=== PATIENT | male | born 1990 | race American Indian/Alaskan Native ===

== ENCOUNTER 2020-02-23 14:46 | Emergency (ER) | payer OTHER ==
[2020-02-23 14:51] VITALS: BP 113/80
--- NOTE | 2020-02-23 15:23 | Emergency Department Report ---
Eye Injury/Foreign Body - HPI Duration: 5 Days Eye Location: Left Severity: Mild Tetanus Status: Up to Date Eye Symptoms: Eye Pain: Yes, Blurred Vision: No, Eye Redness: No, Grinding/Hammering Metal: No, Used Eye Protection: No, Contact Lens Use: No, Recalls Injury: No, Photophobia: No Other History: This is a 29-year-old healthy male who presents the ED complaining of left lower eyelid swelling that is been going on for the past 4 days. Patient states he has been putting warm compress to the eye with no relief. Patient denies any eye injury or foreign body to the eye. Patient states that he has a new dog which may have something to do with his symptoms but otherwise no other injuries. ED Review of Systems ROS: Stated complaint: (L) EYE SWOLLEN Other details as noted in HPI Comment: All other systems reviewed and negative ED Past Medical Hx - Past Medical History Previous Medical History?: No - Surgical History Past Surgical History?: No - Social History Smoking Status: Never Smoker Substance Use Type: Marijuana - Medications Home Medications: Home Medications Medication Instructions Recorded Confirmed Last Taken Type Erythromycin [Erythromycin Ophth 1 applic OP TID #1 tube 02/23/20 Unknown Rx Oint] Eye Injury Exam - Exam General: Vital signs noted. No distress. Alert and acting appropriately. No vision loss bilaterally. GENERAL: Alert and oriented x3, no apparent distress, Normal Gait, atraumatic. EYES: Extra ocular muscles are intact. Pupils are equal, round, and reactive to light and accommodation. No conjunctival erythema bilaterally. Mild swelling to the lower eyelid consistent with a hordeolum. Bilateral orbits nontender to palpation SKIN: Warm and dry, No lesions, No ulceration or induration present. ED Course Vital Signs 02/23/20 14:48 Temperature 98.3 F Pulse Rate 63 Respiratory 20 Rate Blood Pressure 113/80 O2 Sat by Pulse 97 Oximetry ED Medical Decision Making - Medical Decision Making 29-year-old male presents with stye of the left lower lid. Vital signs are normal. Discussed antibiotic therapy with patient. Discussed follow-up with primary care physician in 3 to 5 days. Discussed continued warm compress daily No evidence of visual loss bilaterally. Vision is intact bilaterally Critical care attestation.: If time is entered above; I have spent that time in minutes in the direct care of this critically ill patient, excluding procedure time. ED Disposition Clinical Impression: Hordeolum external Disposition: DC-01 TO HOME OR SELFCARE Is pt being admited?: No Does the pt Need Aspirin: No Condition: Stable Instructions: Theo (ED) Additional Instructions: Make sure to follow up with the primary care physician as discussed. Take all your medications as you've been prescribed. If you have any worsening symptoms or develop new symptoms please return to ED immediately. Prescriptions: Erythromycin [Erythromycin Ophth Oint] 1 applic OP TID #1 tube Referrals: [facility] [Outside] - 3-5 Days [facility] [Outside] - 3-5 Days Forms: Work/School Release Form(ED) Time of Disposition: 15:21
== END 2020-02-23 15:25 | disposition home or self-care (01) ==
LOC: ED 14:46
DX: H00.015 Hordeolum externum left lower eyelid (principal); F12.10 Cannabis abuse, uncomplicated; Z79.899 Other long term (current) drug therapy
CPT/HCPCS: 99282

== ENCOUNTER 2020-05-02 12:36 | Emergency (ER) | payer OTHER ==
[2020-05-02 13:11] VITALS: BP 122/63
--- NOTE | 2020-05-02 16:48 | Emergency Department Report ---
ED Abdominal Pain HPI - General Chief Complaint: Abdominal Pain Stated Complaint: STOMACH PAIN PUI?: No Time Seen by Provider: 05/02/20 16:44 Source: patient Mode of arrival: Ambulatory Limitations: No Limitations - History of Present Illness Initial Comments: Chief complaint: "I thought it was the checkers that I ate." HPI: This is a healthy 29-year-old male without significant past medical history who presents with central intermittent abdominal pain for the past 4 days since eating checkers fast food. He ate 2 hamburgers. Shortly after eating the fast food he developed central dull pain with diarrhea. The discomfort was immediately relieved with his friends Zofran medication. He denies fever. He denies chest pain. He denies cough. He denies sick contacts. He has recently tolerated food including chicken and vegetables. He just wanted to make sure that he did not have a dangerous medical condition. He is currently symptom- free. MD Complaint: abdominal pain -: Gradual, days(s) (4) Location: epigastric Radiation: none Severity: mild Severity scale (0 -10): 0 Quality: cramping, aching, dull Consistency: now resolved Improves With: medication (Friends Zofran medication) Worsens With: nothing Context: possible food poisoning Associated Symptoms: diarrhea - Related Data Previous Rx's Medication Instructions Recorded Last Taken Type Erythromycin [Erythromycin Ophth 1 applic OP TID #1 tube 02/23/20 Unknown Rx Oint] Allergies Allergy/AdvReac Type Severity Reaction Status Date / Time No Known Allergies Allergy Unverified 02/23/20 14:48 ED Review of Systems ROS: Stated complaint: STOMACH PAIN Other details as noted in HPI Comment: All other systems reviewed and negative Constitutional: denies: fever, malaise Respiratory: denies: cough, shortness of breath Gastrointestinal: abdominal pain, diarrhea. denies: nausea, vomiting Neurological: denies: headache ED Past Medical Hx - Past Medical History Previous Medical History?: No - Surgical History Past Surgical History?: No - Social History Smoking Status: Current Every Day Smoker Substance Use Type: Marijuana - Medications Home Medications: Home Medications Medication Instructions Recorded Confirmed Last Taken Type Erythromycin [Erythromycin Ophth 1 applic OP TID #1 tube 02/23/20 Unknown Rx Oint] ED Physical Exam - General Limitations: No Limitations General appearance: alert, in no apparent distress, other (Pleasant, smiling, comfortable, transfers and ambulates with ease) - Head Head exam: Present: atraumatic, normocephalic - Eye Eye exam: Present: normal appearance - ENT ENT exam: Present: mucous membranes moist - Neck Neck exam: Present: normal inspection, full ROM - Respiratory Respiratory exam: Present: normal lung sounds bilaterally. Absent: respiratory distress, wheezes, rales, rhonchi - Cardiovascular Cardiovascular Exam: Present: regular rate, normal rhythm, normal heart sounds. Absent: systolic murmur, diastolic murmur, rubs, gallop - GI/Abdominal GI/Abdominal exam: Present: soft, normal bowel sounds. Absent: distended, tenderness, guarding, rebound - Rectal Rectal exam: Present: deferred - Extremities Exam Extremities exam: Present: normal inspection - Neurological Exam Neurological exam: Present: alert, oriented X3 - Psychiatric Psychiatric exam: Present: normal affect, normal mood - Skin Skin exam: Present: warm, dry, intact, normal color. Absent: rash ED Course Vital Signs 05/02/20 13:10 Temperature 98.3 F Pulse Rate 57 L Respiratory 16 Rate Blood Pressure 122/63 O2 Sat by Pulse 100 Oximetry ED Medical Decision Making - Medical Decision Making This is a healthy male who presents with 4 days of abdominal pain and diarrhea. Differential diagnosis includes IBS, peptic ulcer disease, appendicitis, food poisoning, cholecystitis. Without fever or tenderness, I do not suspect acute inflammatory process such as appendicitis or cholecystitis. He was given extensive verbal and written education regarding possibilities of abdominal pain. My clinical impression: Food poisoning. I recommended [id number] antidiarrheal medicine and acid reducers. Patient verbalized understanding of return precautions. Critical care attestation.: If time is entered above; I have spent that time in minutes in the direct care of this critically ill patient, excluding procedure time. ED Disposition Clinical Impression: Food poisoning, Abdominal pain Disposition: DC-01 TO HOME OR SELFCARE Is pt being admited?: No Does the pt Need Aspirin: No Condition: Stable Instructions: Food Poisoning (ED), Abdominal Pain (ED) Referrals: MONSERRAT HOROWITZ MD [Staff Physician] - as needed Forms: Work/School Release Form(ED)
== END 2020-05-02 17:22 | disposition home or self-care (01) ==
LOC: ED 12:36
DX: A05.9 Bacterial foodborne intoxication, unspecified (principal); F17.200 Nicotine dependence, unspecified, uncomplicated; F12.10 Cannabis abuse, uncomplicated; Z79.899 Other long term (current) drug therapy
CPT/HCPCS: 99281